=== PATIENT | male | born 1980 | race Caucasian/White ===

== ENCOUNTER 2017-02-09 14:39 | Emergency (ER) | payer SELFPAY ==
[2017-02-09 14:54] VITALS: PULSE 72; BMI 27.3
--- NOTE | 2017-02-09 14:54 | PDOC ---
Rapid Medical Evaluation Chief Complaint: Injury Medical Evaluation: 02/09/17 14:48 I have performed a brief in-person evaluation of this patient. The patient presents with a chief complaint of:fall yesterday down 8 stairs Pertinent physical exam findings: pain to right flank, left arm, hit head had positive LOC I have ordered the following: UA The patient will proceed to the ED for further evaluation.
--- NOTE | 2017-02-09 16:29 | PDOC ---
History of Present Illness <Leona Curiel - Last Filed: 02/09/17 16:46> - General History Source: Patient Exam Limitations: No Limitations - History of Present Illness Initial Comments: 02/09/17 16:51 The patient is a bruneian speaking 37 year old male with no significant past medical history, who presents to the ED s/p fall. Patient states he fell down 8 stairs yesterday and loss consciousness. He awoke after but was able to go about his day normally. He complains of a mild headache, worse when pressing that back of his head. He also complains of mild lower back pain. Patient denies fever, chills, nausea, vomiting, diarrhea. <Real Martin - Last Filed: 02/09/17 16:56> - General Chief Complaint: Injury Stated Complaint: FALL, PAIN Time Seen by Provider: 02/09/17 14:46 Past History - Past Medical History Other medical history: none - Psycho/Social/Smoking Cessation Hx Anxiety: No Suicidal Ideation: No Smoking History: Never smoked Have you smoked in the past 12 months: No Information on smoking cessation initiated: No Hx Alcohol Use: No Drug/Substance Use Hx: No Substance Use Type: None <Leona Curiel - Last Filed: 02/09/17 16:46> <Real Martin - Last Filed: 02/09/17 16:56> - Past Medical History Allergies/Adverse Reactions: Allergies Allergy/AdvReac Type Severity Reaction Status Date / Time No Known Allergies Allergy Verified 02/09/17 14:48 Home Medications: Ambulatory Orders NK [No Known Home Medication] 02/09/17 Review of Systems - Review of Systems Able to Perform ROS?: Yes Comments:: 02/09/17 16:51 GENERAL/CONSTITUTIONAL: No fever or chills. No weakness. HEAD, EYES, EARS, NOSE AND THROAT: No change in vision. No ear pain or discharge. No sore throat. CARDIOVASCULAR: No chest pain or shortness of breath. RESPIRATORY: No cough, wheezing, or hemoptysis. GASTROINTESTINAL: No nausea, vomiting, diarrhea or constipation. GENITOURINARY: No dysuria, frequency, or change in urination. MUSCULOSKELETAL: + mild lower back pain. No joint or muscle swelling or pain. No neck pain. SKIN: No rash NEUROLOGIC: + mild headache. worse when pushing on back of head. No vertigo, loss of consciousness, or change in strength/sensation. ENDOCRINE: No increased thirst. No abnormal weight change. HEMATOLOGIC/LYMPHATIC: No anemia, easy bleeding, or history of blood clots. ALLERGIC/IMMUNOLOGIC: No hives or skin allergy. <Real Martin - Last Filed: 02/09/17 16:56> *Physical Exam - Vital Signs Last Vital Signs Temp Pulse Resp BP Pulse Ox 98.0 F 72 18 143/103 100 02/09/17 14:48 02/09/17 14:48 02/09/17 14:48 02/09/17 14:48 02/09/17 14:48 <Leona Curiel - Last Filed: 02/09/17 16:46> - Vital Signs Last Vital Signs Temp Pulse Resp BP Pulse Ox 98.0 F 72 18 143/103 100 02/09/17 14:48 02/09/17 14:48 02/09/17 14:48 02/09/17 14:48 02/09/17 14:48 - Physical Exam Comments: 02/09/17 16:55 GENERAL: Awake, alert, and fully oriented, in no acute distress HEAD: Occipital tenderness. No bruise. EYES: PERRLA, EOMI, sclera anicteric, conjunctiva clear ENT: Auricles normal inspection, hearing grossly normal, nares patent, oropharynx clear without exudates. Moist mucosa NECK: Normal ROM, supple, no lymphadenopathy, JVD, or masses LUNGS: Breath sounds equal, clear to auscultation bilaterally. No wheezes, and no crackles HEART: Regular rate and rhythm, normal S1 and S2, no murmurs, rubs or gallops ABDOMEN: Soft, nontender, normoactive bowel sounds. No guarding, no rebound. No masses EXTREMITIES: Normal range of motion, no edema. No clubbing or cyanosis. No cords, erythema, or tenderness NEUROLOGICAL: Cranial nerves II through XII grossly intact. Normal speech, normal gait SKIN: Warm, Dry, normal turgor, no rashes or lesions noted. <Real Martin - Last Filed: 02/09/17 16:56> Medical Decision Making - Medical Decision Making 02/09/17 16:43 Pt presents to the Ed after fall down 8 stairs yesterday. Had LOC, but awoke and was in his normal state of health after awakening. Currently denies complaints except for mild lower back pain and pain with palpation of the occiput. Denies chest or abdominal pain. Neck cleared by nexus criteria. Denies hematuria. Given that the patient has no signs of trauma, and that he is neurologically intact more than 24 hours after the injury, cerebral bleed is unlikely. Will treat pain with motrin and discharge home. <Leona Curiel - Last Filed: 02/09/17 16:46> *DC/Admit/Observation/Transfer - Discharge Dispostion Admit: No <Leona Curiel - Last Filed: 02/09/17 16:46> - Attestations Scribe Attestion: 02/09/17 16:55 Documentation prepared by Real Martin, acting as medical records tech for Leona Curiel MD, . <Real Martin - Last Filed: 02/09/17 16:56> Diagnosis at time of Disposition: Concussion - Patient Instructions Printed Discharge Instructions: DI for Concussion Additional Instructions: Return to the ED for severe headache, headache with nausea and vomiting, confusion, severe chest or abdominal pain. Print Language: TELUGU
[2017-02-09] MEDS ORDERED: IBUPROFEN 400 MG TABLET (FP) PO ONE ×2 (16:40→17:10)
[2017-02-09 17:22] VITALS: BP 128/74; TEMP 98
== END 2017-02-09 17:17 | disposition home or self-care (01) ==
LOC: JER 14:39
DX: S06.0X1A Concussion with loss of consciousness of 30 minutes or less, initial encounter (principal); G44.309 Post-traumatic headache, unspecified, not intractable; W10.8XXA Fall (on) (from) other stairs and steps, initial encounter; Y93.89 Activity, other specified; Y92.89 Other specified places as the place of occurrence of the external cause
CPT/HCPCS: 99282-25